=== PATIENT | female | born 1965 | race Caucasian/White ===

== ENCOUNTER 2020-12-05 12:04 | Emergency (ER) | payer BC ==
[~2020-12-05] VITALS: Ht 170.2 cm; Wt 63.0 kg
--- NOTE | 2020-12-05 12:04 | NUR ---
Patient BIBA BLS, transferred to bed 7. RN evaluating the patient at bedside.
[2020-12-05 12:05] VITALS: BP 125/70
--- NOTE | 2020-12-05 12:12 | NUR ---
55 y/o female biba from home c/o generalized weakness x 2 days. pt states she is unable to walk up stairs due to weakness. pt states sob x 2 days. rr even and unlabored. states she received first dose of covid vaccine one 11/28. tested - for covid 1 month ago. patient awake and alert on bedside monitor. medhx: asthma, anxiety, gerd
--- NOTE | 2020-12-05 12:17 | NUR ---
DR ROGERS AT BEDSIDE EXAMINING PATIENT
--- NOTE | 2020-12-05 12:24 | NUR ---
PATIENT AMBULATED TO RESTROOM FOR COLLECTION OF URINE
[2020-12-05] MEDS ORDERED: NACL 0.9% 1,000 ML IV ONE (12:25)
[2020-12-05 12:43] LABS: BASOPHILS # (AUTO) 0.1 K/uL (0.00-0.22); BASOPHILS % (AUTO) 1.4 % (0.0-2.0); EOSINOPHILS # (AUTO) 0.1 K/uL (0-0.4); EOSINOPHILS % (AUTO) 1.3 % (0.0-4.0); HEMATOCRIT 45.4 % (36-48); HEMOGLOBIN 14.9 g/dL (12.0-16.0); LYMPHOCYTES % (AUTO) 24.2 % (20.5-51.1); MEAN CORPUSCULAR HEMOGLOBIN 33 pg (27-31); MEAN CORPUSCULAR HGB CONC 33 g/dL (33-37); MEAN CORPUSCULAR VOLUME 101.6 fL (80-94); MONOCYTES # (AUTO) 0.9 K/uL (0.8-1.0); MONOCYTES % (AUTO) 10.3 % (1.7-9.3); NEUTROPHILS # (AUTO) 5.3 K/uL (1.8-7.7); NEUTROPHILS % (AUTO) 62.8 % (42.2-75.2); PLATELET COUNT (AUTO) 302 K/uL (140-450); RED BLOOD CELL COUNT(AUTO) 4.46 MIL/uL (4.20-5.40); RED CELL DISTRIBUTION WIDTH 13.4 % (11.6-13.7); WHITE BLOOD COUNT (AUTO) 8.4 K/uL (4.8-10.8)
--- NOTE | 2020-12-05 12:50 | NUR ---
Patient resting in position of comfort. athletic monitor remains in place. Respirations even/unlabored. All pt needs met at this time. Bed locked in lowest position, side rails x 1, call light in reach.
--- NOTE | 2020-12-05 12:54 | NUR ---
Xray at bedside
[2020-12-05 12:55] LABS: APPEARANCE,URINE CLEAR (CLEAR); BILIRUBIN,URINE NEGATIVE (NEGATIVE); BLOOD, URINE NEGATIVE (NEGATIVE); COLOR,URINE YELLOW (YELLOW); LEUKOCYTE ESTERASE ,URINE 2+ (NEGATIVE); NITRITE, URINE NEGATIVE (NEGATIVE); UGLUCOSE NEGATIVE (NEGATIVE)
[2020-12-05 13:00] LABS: ALBUMIN 4.1 g/dL (3.4-5.0); ANION GAP 11.4 (8-16); CARBON DIOXIDE 28.4 mmol/L (21-32); CREATININE 0.8 mg/dL (0.6-1.3); POTASSIUM 3.8 mmol/L (3.5-5.1); TOTAL BILIRUBIN 0.3 mg/dL (0.0-1.0)
[2020-12-05 13:05] LABS: RBC,URINE 0-5 /HPF (0-5); WBC,URINE 16-25 (MOD) /HPF (0-5)
--- NOTE | 2020-12-05 13:45 | NUR ---
Patient resting in position of comfort. data recovery planner remains in place. Respirations even/unlabored. All pt needs met at this time. Bed locked in lowest position, side rails x 1, call light in reach.
[2020-12-05] MEDS ORDERED: SULF-59 PO (14:17)
[2020-12-05 14:28] LABS: THYROID STIMULATING HORMONE 3.96 uIU/mL (0.34-3.74)
[2020-12-05 14:37] VITALS: BP 120/80
--- NOTE | 2020-12-05 14:37 | NUR ---
Patient discharged with v/s stable. Written and verbal after care instructions given and explained. Patient alert, oriented and verbalized understanding of instructions. Ambulatory with steady gait. All questions addressed prior to discharge. ID band removed. Patient advised to follow up with PMD. Rx of Sulfamethoxazole/Trimethoprim given. Patient educated on indication of medication including possible reaction and side effects. Opportunity to ask questions provided and answered.
--- NOTE | 2020-12-12 09:26 | NUR ---
LATE ENTRY -- NORMAL SALINE INFUSION COMPLETED AT 1338 12/05/20
== END 2020-12-05 14:37 | disposition home or self-care (01) ==
LOC: MED 12:04
DX: N39.0 Urinary tract infection, site not specified (principal); R42 Dizziness and giddiness; R00.2 Palpitations; J45.909 Unspecified asthma, uncomplicated; K21.9 Gastro-esophageal reflux disease without esophagitis; F41.9 Anxiety disorder, unspecified; Z90.49 Acquired absence of other specified parts of digestive tract
CPT/HCPCS: 36415; 71045; 80053; 81001; 83690; 83880; 84443; 84484; 85025; 87086; 93005; 96360; 99285; J7030